=== PATIENT | female | born 1945 | race Caucasian/White ===

== ENCOUNTER 2016-09-11 11:31 | Emergency (ER) | payer OTHER ==
[2016-09-11] MEDS ORDERED: KETOROLAC 30 MG/1 ML SDV IVP ONE (12:05)
[2016-09-11] MEDS ORDERED: LORazepam 2 MG/ML INJ IVP ONE (12:09)
--- NOTE | 2016-09-11 12:22 | CPEKG ---
Heart Rate: 60 RR Interval: 1000 P-R Interval: 208 QRSD Interval: 106 QT Interval: 440 QTC Interval: 440 P [place]: 51 QRS [place]: 15 T Wave [place]: 59 EKG Severity - ABNORMAL ECG - EKG Impression: SINUS RHYTHM EKG Impression: INCOMPLETE RIGHT BUNDLE BRANCH BLOCK EKG Impression: NONSPECIFIC T ABNORMALITIES, LATERAL LEADS Electronically Signed By: Morgan Jacobson 11-Sep-2016 13:57:57
--- NOTE | 2016-09-11 12:31 | EDPHY ---
H & P Stated Complaint: pt concerned for "reaction" to venlafaxine, took last night, nausea Time Seen by Provider: 09/11/16 11:45 HPI/ROS: CHIEF COMPLAINT: medication reaction HISTORY OF PRESENT ILLNESS: 71-year-old female presents emergency department complaining of nausea, anxiety after a new medication that she took last night. Patient has a history of migraine headaches, saw her neurologist yesterday who prescribed 75 mg of venlafaxine extended release. Patient took her 1st dose last night at 8:00 p.m., she woke up at 11:00 p.m. with nausea, vomiting, tremors. Patient reports she vomited twice around midnight and was awake all night with nausea. She reports she felt like her heart was racing. She denies chest pain, no shortness of breath. Patient complains of a headache, typical of her normal migraine behind her left eye. She reports feeling anxious. Patient reports a similar reaction to amitriptyline a couple years ago. REVIEW OF SYSTEMS: A comprehensive 10 point review of systems is otherwise negative aside from elements mentioned in the history of present illness. Source: Patient Exam Limitations: No limitations - Personal History Current Tetanus/Diphtheria Vaccine: Unsure Current Tetanus Diphtheria and Acellular Pertussis (TDAP): Unsure - Medical/Surgical History Hx Asthma: Yes Hx Chronic Respiratory Disease: No Hx Diabetes: No Hx Cardiac Disease: No Hx Renal Disease: No Hx Cirrhosis: No Hx Alcoholism: No Hx HIV/AIDS: No Hx Splenectomy or Spleen Trauma: No Other PMH: cva 2006. migraines. osteop. asthma - Social History Smoking Status: Never smoked - Physical Exam Exam: Physical Exam Gen: Alert and Oriented, anxious HEENT: PERRL, dry mucous membranes NECK: no meningismus CV: regular rate and regular rhythm PULM: CTAB, no wheezes ABDOMEN: soft, non tender to palpation, BS present BACK: No CVA tenderness NEURO: Neurologically grossly intact, normal cerebellar exam EXTREMITIES: normal appearing SKIN: no rash or break in skin on exposed skin PSYCH: answers questions appropriately. Constitutional: Initial Vital Signs Temperature (C) 36.6 C 09/11/16 11:33 Heart Rate 81 09/11/16 11:33 Respiratory Rate 24 H 09/11/16 11:33 Blood Pressure 112/81 H 09/11/16 11:33 O2 Sat (%) 100 09/11/16 11:33 O2 Delivery Mode Room Air O2 (L/minute) 2 Allergies/Adverse Reactions: No Known Allergies Allergy (Unverified 04/16/11 15:44) Home Medications: Medication Instructions Recorded No Medications [NO HOME 1 ea MISC 04/16/11 MEDICATIONS] Medical Decision Making - Diagnostics EKG Interpretation: EKG shows normal sinus rhythm, rate 60, normal axis, good R-wave progression, flattened T-wave in lead III, t wave inversion V2, no ekg for comparison. ED Course/Re-evaluation: IV established, patient is given 1 L of normal saline for her dry mucous membranes, nausea and vomiting. Patient was given a migraine cocktail consisted Benadryl, Toradol, and 0.5 mg lorazepam IV. 1300-patient is sleeping, she wakes without difficulty, on reexamination the patient reports her headache is down from a 9 to a 4/10, she reports feeling much better. Patient denies chest pain, shortness of breath, she reports the feeling of a rapid heart rate has resolved. I have recommended the patient stop taking the venlafaxine and follow up with her primary care doctor as well as her neurologist. Patient is given strict return precautions for any worsening symptoms, new symptoms or concerns. - Data Points Medications Given: Discontinued Medications Diphenhydramine HCl (Benadryl Injection) 25 mg IVP EDNOW ONE Stop: 09/11/16 12:06 Last Admin: 09/11/16 12:42 Dose: 25 mg Ketorolac Tromethamine (Toradol) 10 mg IVP EDNOW ONE Stop: 09/11/16 12:06 Last Admin: 09/11/16 12:41 Dose: 10 mg Lorazepam (Ativan Injection) 0.5 mg IVP EDNOW ONE Stop: 09/11/16 12:10 Last Admin: 09/11/16 12:41 Dose: 0.5 mg Departure - Departure Disposition: Home, Routine, Self-Care Clinical Impression: Anxiety, Medication reaction Condition: Good Instructions: Anxiety (ED) Additional Instructions: Stop taking the venlafaxine. Follow-up with your primary care doctor this week at 1st available appointment, also follow-up with your neurologist. Return to the emergency department for any new symptoms, return of symptoms, worsening symptoms or concerns. Referrals: [facility] ,. [Edm Groups for Call Sched] - As per Instructions
[2016-09-11 12:56] VITALS: RESP 16
[2016-09-11 14:39] VITALS: BP 133/90; PULSE 72; TEMP 98.1; O2SAT 92
== END 2016-09-11 14:42 | disposition home or self-care (01) ==
DX: F41.9 Anxiety disorder, unspecified (principal); T43.215A Adverse effect of selective serotonin and norepinephrine reuptake inhibitors, initial encounter; J45.909 Unspecified asthma, uncomplicated; Z86.73 Personal history of transient ischemic attack (TIA), and cerebral infarction without residual deficits
CPT/HCPCS: 96374; J1200; J1885; J2060